=== PATIENT | male | born 1980 | race Caucasian/White ===

== ENCOUNTER → 2017-05-14 14:44 | Outpatient (CLI) | payer OTHER, SELFPAY ==
[2017-05-14 16:22] LABS: Anion Gap 7 (5-15); BUN 11 mg/dL (7-18); BUN/Creat Ratio 10.5 RATIO (10-20); Calcium,Total 8.9 mg/dL (8.5-10.1); Chloride 106 mmol/L (98-107); Creatinine, Serum 1.05 mg/dL (0.70-1.30); EST Glomerular Filtration Rate 84 mL/min (>60); Est Glom Filt Rate - Afr Amer 101 mL/min (>60); Glucose 92 mg/dL (74-106); Potassium 3.7 mmol/L (3.5-5.1); Sodium Level 141 mmol/L (136-145); Uric Acid 8.9 mg/dL (3.5-7.2)
== END ==
PROVIDERS: Family Provider Family Medicine; PCP Family Medicine; Visit Provider Family Medicine
DX: M10.9 Gout, unspecified (principal)
CPT/HCPCS: 36415; 80048; 84550

== ENCOUNTER → 2018-12-29 15:41 | Outpatient (CLI) | payer BC, SELFPAY ==
[2015-04-29 08:39] VITALS: BMI 33.5
--- NOTE | 2018-12-29 15:46 | RAD_ITS ---
STUDY: X-RAY - PELVIS AND LEFT HIP REASON FOR EXAM: Male, 38 years old. Lower back pain. TECHNIQUE: 3 views of the pelvis and hip. COMPARISON: None. FINDINGS: There is increased fecal debris with mild distention of the rectosigmoid. Normal visualized soft tissue structures. Normal bilateral iliac wings, sacroiliac joints and visualized sacrum. Normal bilateral superior and inferior pubic rami. Normal pubic symphysis. Normal bilateral ischial tuberosities. Normal visualized femoral head. There is minimal left acetabular spurring. There is moderate articular joint space narrowing of the hip. RAD/HIP, UNI W/ Pelvis 2-3 Views IMPRESSION: Minimal/early degenerative arthritis of the left hip, otherwise normal x-ray examination of the pelvis and hip. Electronically Signed: Haven Mckoy MD at 3:38 EDT , Service support ,
--- NOTE | 2018-12-29 15:46 | RAD_ITS ---
STUDY: X-RAY - LUMBAR SPINE REASON FOR EXAM: Male, 38 years old. Low back pain for 2 months, worse within the last few days. TECHNIQUE: 5 view(s) of the lumbar spine were obtained. COMPARISON: None FINDINGS: Normal lumbar lordosis. There is no substantial scoliosis. There is minimal anterolisthesis of L4 on L5 (3 mm). There is mild, multilevel endplate spondylosis of the lumbar vertebrae. There is mild multilevel narrowing of disc height, more significant throughout the lower thoracic spine. There is no demonstrated fracture. There is suggestion of pars defect of L4. The soft tissue structures are unremarkable. RAD/L/S Spine Min 4 Views IMPRESSION: Minimal anterolisthesis of L4 on L5 with pars defect of L4, clinical correlation recommended. Mild underlying spondylosis/degenerative disease with no acute fracture. Electronically Signed: Haven Mckoy MD at 3:53 EDT , Service support ,
== END ==
PROVIDERS: Family Provider Family Medicine; PCP Family Medicine; Referring Provider Family Medicine; Visit Provider Family Medicine
DX: M54.5 Low back pain (principal)
CPT/HCPCS: 72110; 73502

== ENCOUNTER → 2019-03-15 14:27 | Outpatient (CLI) | payer BC, SELFPAY ==
[2015-04-29 08:39] VITALS: BMI 33.5
[2019-03-15 16:04] LABS: ALB/GLOB Ratio 1.2 RATIO (0.9-2.4); AST(SGOT) 29 U/L (15-37); Alanine Aminotransfer ALT/SGPT 56 U/L (16-61); Albumin, Serum 3.9 g/dL (3.2-5.0); Alkaline Phosphatase 81 U/L (45-117); Anion Gap 7 (5-15); BUN 16 mg/dL (7-18); Calcium,Total 8.6 mg/dL (8.5-10.1); Chloride 103 mmol/L (98-107); Creatinine, Serum 1.14 mg/dL (0.70-1.30); EST Glomerular Filtration Rate 75 mL/min (>60); Est Glom Filt Rate - Afr Amer 91 mL/min (>60); Globulin 3.3 g/dL (2.2-4.2); Glucose 103 mg/dL (74-106); Potassium 3.6 mmol/L (3.5-5.1); Protein, Total 7.2 g/dL (6.4-8.2); Sodium Level 140 mmol/L (136-145)
== END ==
PROVIDERS: Family Provider Family Medicine; PCP Family Medicine; Referring Provider Family Medicine; Visit Provider Family Medicine
DX: B35.1 Tinea unguium (principal)
CPT/HCPCS: 36415; 80053

== ENCOUNTER → 2019-08-11 11:02 | Outpatient (CLI) | payer BC, SELFPAY ==
[2015-04-29 08:39] VITALS: BMI 33.5
[2019-08-11 13:05] LABS: Uric Acid 6.9 mg/dL (3.5-7.2)
== END ==
PROVIDERS: PCP Family Medicine; Visit Provider Family Medicine
DX: M10.9 Gout, unspecified (principal)
CPT/HCPCS: 36415; 84550

== ENCOUNTER → 2019-11-09 17:58 | Outpatient (CLI) | payer BC, SELFPAY ==
[2015-04-29 08:39] VITALS: BMI 33.5
== END ==
PROVIDERS: PCP Family Medicine; Referring Provider Family Medicine; Visit Provider Family Medicine
DX: Z20.828 Contact with and (suspected) exposure to other viral communicable diseases (principal)
CPT/HCPCS: 87635; U0003

== ENCOUNTER 2020-01-16 10:30 | Outpatient (RCR) | payer BC, SELFPAY ==
--- NOTE | 2019-12-21 17:59 | HP.PTEVAL ---
Patient's Visit Information TAWNY OCONNOR is a 39 year old M referred to Physical Therapy by Dr. Blake Alfonso MD with a diagnosis of L knee and hip OA and Lumbago. Date of Evaluation: 12/21/19 Physical Therapist: Eduin Rosas, DPT, OCS, CSCS - Visit Plan Frequency: 2x /Week Duration: 4-6 Weeks Plan: 2x/week for 4-6 weeks for ... 1. STM TP to L glut area and stretch L glut and pirformis/ITB. 2. TEach and progress gym based core, hip strength program to be progressed to community gym. Use KB and DB and bodyweight please.([employer] is his gym) Give list when ready. - Subjective Went to ortho as knee was going out and having weird pain on steps and in and out of truck. X rays no problem with knee or hip. Doctor thought it muight be hip. Has spondylo in LB according to patient. Has had previous issues with LB but not bad issues. Pain is lateral and posterior hip into LB. Knee not a problem lately. Pain in hip gets to 8/10 with sitting/ standing , driving down road. Then says no pain lately. Sleep is fine. Has moved recently to [employer] [place] and has not hurt lately. Thinks he may need ot work out. Knee hurt a couple days ago. 5/10 adn went away quickly. Knee feels weird adn weak. Pivotting on knee on steps hurts. Sleep is OK. 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 Doing everything he needs to do at work. Hobbies: motorcyle riding at stop signs can be challenging. No regular ex. - Objective Walks normal today and trasnfers I, steps reciprocal without rail or pain today. Squats well with just some tightness posterior hip. Max tightness present in B pirifrmis, ITB and quad/hip flexor, min in HS. AROM lumbar spine full extension and SB without pain, Forward flexion tight and slightly limited. PA pressure gives pain L34. LE AROM WFL with the above flexibility deificts, pain at end range of L hip IR/ER. Knees and ankle AROM WFL B without pain but some crepitus in L knee audible. reflexes 1/3 patella and achilles B. Sensation WNL to gross light touch In B LE. Strength hip ext B 4-, hip abduction 4/5, hip flexion 4-/5...no pain. knee flex and ext 5/5, crepitus L knee ext. ankles 4+/5 without pain in all 4 directions. - bounce home L, slight + patellar grind L knee. - LEXI L hip . - Goals Goal 1:: Pain in L hip and knee 0-1/10 at all times including getting in and out of car. Goal Time Frame: 4-6 Weeks Goal 2:: Patient feel 50% stronger and 90% better in pain levels to make steps easier and less painful Goal Time Frame: 4-6 Weeks Goal 3:: I approp gym based ex program for strength adn stretching to manage condition Goal Time Frame: 4-6 Weeks Goal 4:: 74+/80 score on LEFS to maximize mobility Goal Time Frame: 4-6 Weeks - Rehabilitation Potential Physical Therapy Diagnosis: Degeneration L hip/knee and LB combined with poor management. Rehabilitation Potential: Good - Anticipated Interventions Patient/Client Instruction: Educate patient on: Condition, Plan of Care For the Purpose of:: To decrease pain, To increase ROM, To improve muscle performance and motor function, To increase tolerance to activity/condition/position, To improve ability of physical actions for home/community/work/leisure Therapeutic Exercise to Include: Strength training, Postural training, Flexibilty training, Neuromotor development, Passive ROM, Active ROM, Dynamic Lumbar Stabilization For the Purpose of:: To decrease pain, To improve muscle performance and motor function, To increase tolerance to activity/condition/position, To improve gait and locomotor functions Manual Therapy Techniques to Include: Mobilization, Soft tissue mobilization For the Purpose of:: To decrease pain, To increase ROM TENS: Yes Cryotherapy (ice pack, ice massage): Yes For the Purpose of:: To decrease pain Thank you for the opportunity to evaluate your patient. For Medicare and Medicare HMO plans, please review the plan of care and approve it. It will need to be FAXED BACK to us at [phone] for Medicare purposes. For Medicare only, by signing this I certify the plan of care. Please let me know if there are questions or concerns regarding this plan of care. Physician Signature: Date:
--- NOTE | 2020-01-16 11:18 | HP.PTDCSUM_ITS ---
It has been my pleasure to treat TAWNY OCONNOR referred by Dr. Blake Alfonso MD, with the diagnosis of L knee and hip OA and Lumbago for a total of 4 visit(s). Discharge Date: 01/16/20 Please see the following information for a summary of their discharge status. Subjective: Been working out at gym with anil without limitations just sore. L hip and knee getting stronger and just slight discomfort with pivotting on landing 2/10 and weak. Getting out of truck can cause same feeling. To doctor sometime soon. Will continue to workout at [facility]. Back Pain Intensity (Out of 10): 0 % Improvement: 40 Objective/Function: Good AROM at knee and back without pain. Hip still tight anteriorlya nd into extension at 10 degrees actively.. Strength 4/5 L hip and knee 4+/5 L without pain. core strength 4+/5 back extension. Goal 1:: Pain in L hip and knee 0-1/10 at all times including getting in and out of car. Goal Progress: Progressing Goal 2:: Patient feel 50% stronger and 90% better in pain levels to make steps easier and less painful Goal Progress: Progressing Goal 3:: I approp gym based ex program for strength adn stretching to manage con dition Goal Progress: Progressing Goal 4:: 74+/80 score on LEFS to maximize mobility Goal Progress: Progressing Plan: d/c to [facility] Discharge Comments: Pt to continue stretching at least 3x/weeek adn strengthening at community gym 3x/week. If there are questions or concerns regarding this patient's physical therapy, please feel free to call me at [phone]. Thank you for the referral of this patient. Sincerely, Eduin Rosas, DPT, OCS, CSCS
== END 2020-01-16 19:00 | disposition home or self-care (01) ==
LOC: PT 10:30
PROVIDERS: PCP Family Medicine; Referring Provider Orthopaedic Surgery; Visit Provider Orthopaedic Surgery
DX: M17.12 Unilateral primary osteoarthritis, left knee (principal); M16.12 Unilateral primary osteoarthritis, left hip; M54.42 Lumbago with sciatica, left side
CPT/HCPCS: 97110; 97140; 97162; 97164

== ENCOUNTER → 2020-03-06 13:33 | Outpatient (CLI) | payer BC, SELFPAY ==
[2015-04-29 08:39] VITALS: BMI 33.5
== END ==
PROVIDERS: PCP Family Medicine; Visit Provider Family Medicine
DX: U07.1 COVID-19 (principal)
CPT/HCPCS: 87635; U0003

== ENCOUNTER → 2020-10-01 15:33 | Outpatient (CLI) | payer BC, SELFPAY ==
--- NOTE | 2020-10-01 14:30 | LIP_PTH ---
PATIENT: TAWNY OCONNOR LOC: [facility] U#:[id number] AGE/SX: 44/M ROOM: RE10/01/[address]: Dr. Shayne Lemos MD : 1980 BED: DIS: SPEC #: [id number] RECD: 10/01/20 15:30 STATUS: RAQUEL RERafael #: [id number] MADONNA: 10/01/20 14:[address]: Shayne Lemos DEPT: SURGICAL PATHOLOGY RECD BY: Monisha Tamayo ENTERED: 10/02/20 08:33 SP TYPE: LIPOMA OTHR DR: Dr. Kirk Rodriguez MD Tissues: Soft tissues, NOS Procedures: Surgery Specimen Level III HEADER OPERATION: Excision left forearm lipoma PRE-OP DIAGNOSIS: Left forearm lipoma TISSUE SUBMITTED: Left forearm lipoma MICROSCOPIC DIAGNOSIS Left forearm lipoma: Mature adipose tissue, consistent with lipoma. BRIDGETT:[place] 10/03/2020 MICROSCOPIC DESCRIPTION Slides are reviewed. GROSS DESCRIPTION Received in fixative is one container labeled with the patient's name and designated left arm lipoma. The specimen consists of an irregular piece of yellow adipose tissue measuring 3.5 x 3 x 0.7 cm. Sections reveal yellow adipose cut surfaces without area of hemorrhage, necrosis or cystic degeneration. Child Nutrition Director sections are submitted in one cassette. / SJ:rg 10/02/20 TC:1 CPT: [id number]
[2020-10-01 14:31] VITALS: BMI 33.5
== END ==
PROVIDERS: PCP Family Medicine; Visit Provider Surgery
DX: D17.22 Benign lipomatous neoplasm of skin and subcutaneous tissue of left arm (principal)
CPT/HCPCS: 88304

== ENCOUNTER → 2021-01-08 14:50 | Outpatient (CLI) | payer BC, SELFPAY ==
--- NOTE | 2021-01-08 14:53 | VDLE_ITS ---
Reason For Study: RLE PAIN RIGHT GSV is normal. CFV is compressible, spontaneous, phasic, competent and demonstrates normal augmentation. FV is compressible, spontaneous, phasic, competent and demonstrates normal augmentation. POP V is compressible, spontaneous, phasic, competent and demonstrates normal augmentation. T/P Trunk is compressible. PTV is compressible. RT PerV is compressible. Procedure This is a venous duplex using B-mode, color flow and spectral Doppler. Exam performed in department. The exam was diagnostic. A preliminary report was called and/or faxed to Dr. [phone]. VL/Venous Duplex US, Unilateral Interpretation Summary Deep veins of the right lower extremity are patent and compressible segmentally . There is no evidence of right lower extremity deep vein thrombosis. Valvular competence darren ears intact within the proximal deep venous system on the right . The right great saphenous vein a ppears patent and compressible segmentally. Ordering Physician: Kirk Rodriguez Referring Physician: Kirk Rodriguez Performed By: Neli Hsu RVT
== END ==
PROVIDERS: PCP Family Medicine; Referring Provider Family Medicine; Visit Provider Family Medicine
DX: M79.606 Pain in leg, unspecified (principal)
CPT/HCPCS: 93971